=== PATIENT | male | born 1965 | race Caucasian/White ===

== ENCOUNTER 2016-12-13 10:39 | Emergency (ER) | payer BC ==
[~2016-12-13 10:39] MED LIST: CHOLESTEROL; METFORMIN HCL1000 M1
[2016-12-13 11:00] LABS: INFLUENZA A NEG (NEG); INFLUENZA B NEG (NEG)
[2016-12-13 11:31] LABS: BLOOD UREA NITROGEN 9 mg/dL (9-23); BUN/CREATININE RATIO 11.25; CALCIUM SERUM 8.3 mg/dL (8.4-10.2); CARBON DIOXIDE 24 mmol/L (22-31); CHLORIDE 90 mmol/L (100-111); CREATININE SERUM 0.8 mg/dL (0.6-1.4); GLOM FILT RATE Estimated ABOVE60 mL/min (>60); GLUCOSE FASTING 279 mg/dL (70-110); POTASSIUM 3.5 mmol/L (3.5-5.1)
[2016-12-13 11:32] LABS: SODIUM 124 mmol/L (135-145)
[2016-12-13 11:40] LABS: URINE SOURCE CLEAN CATCH
[2016-12-13 11:45] LABS: URINE APPEARANCE CLEAR; URINE BILIRUBIN NEG (NEG); URINE BLOOD 1+ (NEG); URINE COLOR YELLOW; URINE GLUCOSE 300 MG/DL (NORM); URINE KETONE NEG (NEG); URINE LEUKOCYTE ESTERASE NEG (NEG); URINE NITRATE NEG (NEG); URINE PH 5.5 (5-8); URINE PROTEIN 2+ (NEG); URINE UROBILINOGEN 0.2 MG/DL (NORM)
[2016-12-13 11:47] LABS: MICRO INDICATED? YES
[2016-12-13 11:55] LABS: CULTURE INDICATED? NO; URINE BACTERIA NEG (NEG); URINE RBC 0-2 /[HPF] (0-2); URINE SQUAMOUS EPITHELIAL CELL FEW /[HPF]; URINE WBC NEG /[HPF] (0-5)
== END 2016-12-13 13:31 | disposition home or self-care (01) ==
LOC: SED 10:39
PROVIDERS: Emergency Medicine
DX: B34.9 Viral infection, unspecified (principal); E87.1 Hypo-osmolality and hyponatremia; E11.65 Type 2 diabetes mellitus with hyperglycemia; Z95.1 Presence of aortocoronary bypass graft; Z88.0 Allergy status to penicillin; Z88.1 Allergy status to other antibiotic agents
CPT/HCPCS: 36415; 80048; 81003; 82947; 87804; 96374; 96375; 99284; J2405